=== PATIENT | male | born 1980 ===

== ENCOUNTER 2017-02-26 12:47 | Emergency (ER) | payer MEDICAID ==
[2017-02-26 12:56] VITALS: TEMP 97.6; BMI 28.2
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
[2017-02-26 13:31] VITALS: BP 118/78; PULSE 78; RESP 16
[2017-02-26 13:32] VITALS: O2SAT 100
== END 2017-02-26 13:30 | disposition home or self-care (01) ==
LOC: C.ER 12:47
DX: G89.29 Other chronic pain (principal); M54.2 Cervicalgia

== ENCOUNTER 2017-04-04 21:39 | Inpatient (IN) | payer MEDICAID ==
[2017-04-04 21:40] VITALS: BMI 28.2
[2017-04-04 22:26] LABS: BASO # 0.1 K/uL (0.0-0.2); BASO % 0.9 % (0.0-2.0); EOS # 0.1 K/uL (0.0-0.7); EOS % 1.1 % (0.0-4.0); HEMATOCRIT 38.5 % (35.0-51.0); LYMPH # 2.6 K/uL (1.0-4.3); LYMPH % 24.1 % (20.0-40.0); MEAN CORPUSCULAR HEMOGLOBIN 22.9 pg (27.0-31.0); MEAN CORPUSCULAR HGB CONC 31.7 g/dL (33.0-37.0); MEAN PLATELET VOLUME 8.8 fL (7.2-11.7); MONO # 0.7 K/uL (0.0-0.8); MONO % 6.9 % (0.0-10.0); RED CELL DISTRIBUTION WIDTH 16.8 % (11.5-14.5); WHITE BLOOD COUNT 10.6 K/uL (4.8-10.8)
[2017-04-04 22:29] LABS: MEAN CELL VOLUME 72.3 fL (80.0-94.0)
[2017-04-04 22:35] LABS: CHLORIDE 101 mmol/L (98-107); SODIUM 143 mmol/L (132-148)
[2017-04-04 22:36] LABS: POTASSIUM 3.6 mmol/L (3.6-5.2)
[2017-04-04 22:38] LABS: ALB/GLOB RATIO 1.1 (1.0-2.1); ALKALINE PHOSPHATASE 81 U/L (38-126); ALT/SGPT 26 U/L (21-72); AST/SGOT 17 U/L (17-59); BILIRUBIN,TOTAL 0.5 mg/dL (0.2-1.3); BLOOD UREA NITROGEN 18 mg/dL (9-20); CALCIUM 9.6 mg/dl (8.6-10.4); CARBON DIOXIDE 28 mmol/L (22-30); GFR AFRICAN-AMERICAN > 60; GLUCOSE,RANDOM 86 mg/dL (75-110); TOTAL PROTEIN 7.7 g/dL (6.3-8.3)
[2017-04-04 22:39] LABS: ALCOHOL SERUM < 10 mg/dl (0-10)
[2017-04-04 23:04] LABS: RBC URINE 1 /hpf (0-3); URINE BACTERIA RARE (<OCC); URINE BILIRUBIN NEGATIVE (NEGATIVE); URINE BLOOD NEGATIVE (NEGATIVE); URINE COLOR Yellow (YELLOW); URINE GLUCOSE (UA) NORMAL (Normal); URINE KETONE TRACE mg/dL (NEGATIVE); URINE PROTEIN 1+ mg/dL (NEGATIVE); WBC URINE 9 /hpf (0-5)
--- NOTE | 2017-04-04 23:07 | C.PDOC ---
History Of Present Illness 36 year old male presents to the ED seeking detox from heroin. Patient snorts heroin, and states his last use was yesterday (six bags). Patient denies current physical complaints, and has no suicidal or homicidal ideations. Time Seen by Provider: 04/04/17 22:07 Chief Complaint (Nursing): Substance Abuse History Per: Patient History/Exam Limitations: no limitations Onset/Duration Of Symptoms: Persistent Suicide/Self Injury Attempted (Context): None Modifying Factor(s): Narcotics (heroin) Associated Symptoms: denies: Suicidal Thoughts, Suicidal Plan Past Medical History Reviewed: Historical Data, Nursing Documentation, Vital Signs Vital Signs: Last Vital Signs Temp 98.4 F 04/10/17 06:00 Pulse 77 04/10/17 06:00 Resp 18 04/10/17 06:00 BP 109/64 04/10/17 06:00 Pulse Ox 98 04/10/17 12:09 - Medical History PMH: Anxiety, Back Problems, Gastritis Family History: States: No Known Family Hx - Social History Hx Tobacco Use: No Hx Alcohol Use: No Hx Substance Use: Yes - Immunization History Hx Tetanus Toxoid Vaccination: No Hx Influenza Vaccination: Yes Hx Pneumococcal Vaccination: No Review Of Systems Except As Marked, All Systems Reviewed And Found Negative. Constitutional: Negative for: Fever, Chills Cardiovascular: Negative for: Chest Pain, Palpitations Respiratory: Negative for: Cough, Shortness of Breath Gastrointestinal: Negative for: Nausea, Vomiting, Abdominal Pain, Diarrhea Neurological: Negative for: Headache Psych: Negative for: Suicidal ideation Physical Exam - Physical Exam Appears: Well, Non-toxic, No Acute Distress Skin: Warm, Dry Head: Normacephalic Eye(s): bilateral: Normal Inspection Oral Mucosa: Moist Cardiovascular: Rhythm Regular Respiratory: Normal Breath Sounds, No Rales, No Rhonchi, No Wheezing Gastrointestinal/Abdominal: Normal Exam, Bowel Sounds, Soft, No Tenderness Extremity: Normal ROM, No Tenderness Neurological/Psych: Oriented x3 Gait: Steady ED Course And Treatment - Laboratory Results Result Diagrams: 04/04/17 22:18 04/04/17 22:18 O2 Sat by Pulse Oximetry: 98 (room air ) Pulse Ox Interpretation: Normal Progress Note: Blood work, UA, UDS ordered and reviewed. 11:40pm- Patient medically cleared. 12:03am- Patient accepted for detox admission by Dr. Neumann. Disposition - Disposition Disposition: HOSPITALIZED Disposition Time: 00:03 Condition: STABLE - Clinical Impression Clinical Impression: Opiate dependence, Cannabis use disorder, mild, abuse - Scribe Statement The provider has reviewed the documentation as recorded by the Rachelibe Talya Thomas All medical record entries made by the Scribe were at my direction and personally dictated by me. I have reviewed the chart and agree that the record accurately reflects my personal performance of the history, physical exam, medical decision making, and the department course for this patient. I have also personally directed, reviewed, and agree with the discharge instructions and disposition. Decision To Admit - Pt Status Changed To: Hospital Disposition Of: Inpatient - Admit Certification Admit to Inpatient:: After my assessment, the patient will require hospitalization for at least two midnights. This is because of the severity of symptoms shown, intensity of services needed, and/or the medical risk in this patient being treated as an outpatient. - InPatient: Physician Admission Certification: I certify that this patient requires 2 or more midnights of care for the following reason:: see notes - . Bed Request Type: Detox Admitting Physician: Guero Neumann Patient Diagnosis: Opiate dependence, Cannabis use disorder, mild, abuse
[2017-04-04 23:09] LABS: URINE LEUKOCYTE ESTERASE 1+ Leu/uL (Negative)
[2017-04-05] MEDS ORDERED: Buprenorphine Hydrochloride 2 mg SL ONE ×2 (01:55→03:00)
--- NOTE | 2017-04-05 02:53 | PCM.BM ---
<Clotilde Antunez - Last Filed: 04/05/17 02:51> Treatment Plan Problems - Problems identified on initial assessmt Opiate Dep Date Initiated: 04/05/17 Time Initiated: 02:50 Assessment reference: NA (Opiate Dep) Treatment assets and liabiliti Patient Assests: cooperative, ADL independent, good support system, negotiates basic needs, financial stabiity Patient Liabilities: physical pain, substance abuse, medical problems - Milieu Protocol Maintain good personal hygiene: daily Encourage regular showers, daily Remind patient to perform daily oral care, daily Assist patient to perform ADL's Conduct patient checks and document Observation sheet: Q15 minutes Maintain personal safety: every shift Educate patient to report safety concerns to staff, every shift Monitor environment for contraband/sharps Medication safety: Monitor for expected outcome, potential side effects: every shift, Assess barriers to learning: every shift, Assess readiness for medication education: every shift <Guero Neumann - Last Filed: 04/05/17 15:41> - Diagnosis (1) Opiate dependence, continuous Status: Acute (2) Cannabis use disorder, moderate, dependence Status: Acute <Mary Kerr - Last Filed: 04/06/17 10:39> Family Contact Family involvement: Famliy/SO not involved Family contact: Patient agrees to contact - Goals for Treatment Patient goals for treatment: Transition from detox to short-term rehab. Discharge/Continuing Care - Education Needs Education Needs: Patient Medication, Patient Diagnosis/Disease Process, Patient Coping Skills, Patient Anger Management skills, Patient Placement options, Patient Community resources - Discharge Discharge Criteria: No longer exhibiting s/s of withdrawal, Reduction of target symptoms Discharge to:: Substance Abuse Rehab - Treatment Team Participation Patient/Family/SO Statement: 04/06/17 10:38 "I wanna go to [facility] if I [facility]". Discussed with Family/SO: No Was Patient/Family/SO present at Treatment Team Meeting: Yes
--- NOTE | 2017-04-05 15:48 | PCM.PSYCH ---
Initial Psychiatric Evaluation - Initial Psychiatric Evaluation Type of Admission: Voluntary Legal Status: Capacity Chief Complaint (in patient's own words): I need help for my substance use History of Present Illness and Precipitating Events: Patient is a 36 years old, single, employed, male, with history of opiate and cannabis use was admitted for the treatment of withdrawing from opiates. Patient reported he started opiate medications after surgery on his neck. Initially he was getting opiate pain medications from his provider which later stopped giving him medications. Patient reported after that he started using heroin, was using up to 1 bundle daily, sniffing. He started using heroin in August 2016. His last use of heroin was 2 days ago. Cannabis: He started using cannabis at the age of 18 years. According to patient he was using 4 g of cannabis daily which now is reduced to 2 blunts daily. His last use was 4 days ago. Patient also has history of cocaine use. His last use of cocaine was in 2009. Patient also smoke one pack of cigarettes daily and is requesting for nicotine patch. Patient has history of cervical spinal fusion surgery. Patient also reported that he was taking Xanax 0.5 mg 4 times a day, prescribed by his PCP. His last use of Xanax was 3-4 months ago. Patient reported he stopped taking Xanax and had a seizure at that time. He was born in [place], has 2 years of college. Currently he is working. Lives with his mother and sister. Never and has no children. His height is 5 feet 6 inches and weight is 175 pounds. Current Medications: Active Medications Generic Name Dose Route Start Last Admin Trade Name Freq PRN Reason Stop Dose Admin Clonidine HCl 0.1 mg 04/05/17 01:39 04/05/17 09:59 Catapres PO 0.1 mg Q8 PRN Administration COWS Score More or Equal to 5 Dicyclomine HCl 10 mg 04/05/17 01:39 04/05/17 10:00 Bentyl PO 10 mg Q6 PRN Administration Muscle spasm Gabapentin 300 mg 04/05/17 14:00 04/05/17 13:25 Neurontin PO 300 mg TID WANDY Administration Hydroxyzine HCl 25 mg 04/05/17 11:00 Atarax PO Q6 PRN Anxiety Loperamide HCl 2 mg 04/05/17 01:39 Imodium PO Q8 PRN Diarrhea Nicotine 1 patch 04/05/17 11:00 04/05/17 11:27 Nicoderm Cq TD 1 patch DAILY WANDY Administration Ondansetron HCl 4 mg 04/05/17 01:39 Zofran Tab PO Q8 PRN Nausea/Vomiting Pneumococcal Polyvalent Vaccine 0.5 ml 04/08/17 10:00 Pneumovax 23 Vaccine IM 04/08/17 10:01 .ONCE ONE Trazodone HCl 50 mg 04/05/17 01:47 Desyrel PO HS PRN Insomnia Past Psychiatric History - Past Psychiatric History Previous Treatment History: None History of Abuse: None reported History of ETOH/Drug Use: See HPI History of Family Illness: None reported Pertinent Medical Hx (Current Medical&Sleep Prob, Allergies): Allergies Allergy/AdvReac Type Severity Reaction Status Date / Time ketorolac tromethamine Allergy Intermediate SWELLING Verified 04/04/17 21:59 [From Toradol] acetaminophen Allergy Verified 04/04/17 21:59 [From Tylenol-Codeine #3] codeine Allergy Verified 04/04/17 21:59 [From Tylenol-Codeine #3] tramadol AdvReac NAUSEA Verified 04/04/17 21:59 No Known Home Med 04/04/17 Review of Systems - Psychiatric Psychiatric: Other Mental Status Examination - Personal Presentation Personal Presentation: Looks stated age - Affect Affect: Other (Appropriate) - Motor Activity Motor Activity: Calm - Reliability in Providing Information Reliability in Providing Information: Fair - Speech Speech: Organized - Mood Mood: Anxious - Formal Thought Process Formal Thought Process: No Impairment - Hallucinations/Delusions Hallucinations: Other (None reported) Delusions: Other - Obsessions/Compulsions Obsessions: None Compulsions: None - Cognitive Functions Orientation: Person, Place, Situation, Time Sensorium: Alert Attention/Concentration: Attentive Abstract Thinking: Center Estimate of Intelligence: Average Judgement: Intact, as evidence by: Insight regarding need for hospitalization Memory: Recent intact, as evidence by: 3/3 object recall, Remote intact, as evidenced by: Ability to recall historical events - Risk Risk: Withdrawal, Diminished functioning - Strength & Assets Inventory Strength & Assets Inventory: Family support, Employment history, Cooperative - Limitations Limitations: Other DSM 5 DX - DSM 5 DSM 5 Diagnosis: Opiate use disorder severe Cannabis use disorder moderate - Recommended/Plan of Treatment Treatment Recommendations and Plan of Treatment: Patient education Reported therapy We will start Subutex detox for opiate withdrawal symptoms Other when necessary medications Projected ELOS: 4-5 days - Smoking Cessation Smoking Cessation Initiated: Yes
[2017-04-05] MEDS: Pantoprazole 40 mg EC Tab PO SCH (16:31)
[2017-04-06] MEDS ORDERED: Buprenorphine Hydrochloride 2 mg SL ONE (09:15)
[2017-04-06] MEDS: Pantoprazole 40 mg EC Tab PO SCH (09:24)
--- NOTE | 2017-04-06 13:39 | PCM.PYCHPN ---
Psychiatric Progress Note - Psychiatric Progress Note Patient seen today, length of contact: 15 minutes Patient Chief Complaint: I'm feeling better Problems Identified/Issues Discussed: Patient seen. Chart reviewed. Case discussed with the staff. Issues related to illness and treatment were discussed with the patient. Reported compliant with treatment with no adverse affects. Tolerating treatment very well. Reported feeling better with mild withdrawal symptoms. At the time of evaluation, patient was awake alert oriented 3, had no delusions, no auditory or visual hallucinations, no suicidal ideations or homicidal ideations. Medical Problems: None reported Diagnostic Results: Reviewed DSM 5 Symptoms Update: Improving with treatment Medication Change: No Medical Record Reviewed: Yes Mental Status Examination - Cognitive Function Orientation: Person, Place, Situation, Time Memory: Intact Attention: WNL Concentration: WNL Association: WN Fund of Knowledge: [facility] Decription of patient's judgement and insights: Fair - Mood Mood: Anxious (Much less than before) - Affect Affect: Other (Appropriate) - Speech Speech: Appropriate - Formal Thought Process Formal Thought Process: No Impairment Psychotic Thoughts and Behaviors: None - Suicidal Ideation Suicidal Ideation: No - Homicidal Ideation Homicidal Ideation: No Goal/Treatment Plan - Goal/Treatment Plan Need for Continued Stay: Remain at risks for inpatient hospitalization, Discharge may exacerbated symptoms, Severe functional impairment Progress Toward Problem(s) and Goals/Treatment Plan: Patient education Reported therapy Continue treatment as before Wants to go to [facility] for follow-up care after discharge from the hospital Estimated Date of D/C: 04/09/17 - Smoking Cessation Smoking Cessation Initiated: Yes
[2017-04-06 20:10] VITALS: RESP 18
[2017-04-07] MEDS: Buprenorphine Hydrochloride 2 mg SL SCH (09:18)
[2017-04-07] MEDS: Pantoprazole 40 mg EC Tab PO SCH (09:18)
--- NOTE | 2017-04-07 17:25 | PCM.PYCHPN ---
Psychiatric Progress Note - Psychiatric Progress Note Patient seen today, length of contact: 15 minutes Patient Chief Complaint: I'm feeling better Problems Identified/Issues Discussed: Patient seen. Chart reviewed. Case discussed with the staff. Issues related to illness and treatment were discussed with the patient. Reported compliant with treatment with no adverse affects. Tolerating treatment very well. Reported feeling better with mild withdrawal symptoms. At the time of evaluation, patient was awake alert oriented 3, had no delusions, no auditory or visual hallucinations, no suicidal ideations or homicidal ideations. Medical Problems: None reported Diagnostic Results: Reviewed DSM 5 Symptoms Update: Improving with treatment Medication Change: No Medical Record Reviewed: Yes Mental Status Examination - Cognitive Function Orientation: Person, Place, Situation, Time Memory: Intact Attention: WNL Concentration: WNL Association: [facility] Fund of Knowledge: [facility] Decription of patient's judgement and insights: Fair - Mood Mood: Neutral - Affect Affect: Other (Appropriate) - Speech Speech: Appropriate - Formal Thought Process Formal Thought Process: No Impairment Psychotic Thoughts and Behaviors: None - Suicidal Ideation Suicidal Ideation: No - Homicidal Ideation Homicidal Ideation: No Goal/Treatment Plan - Goal/Treatment Plan Need for Continued Stay: Remain at risks for inpatient hospitalization, Discharge may exacerbated symptoms, Severe functional impairment Progress Toward Problem(s) and Goals/Treatment Plan: Patient education Reported therapy Continue treatment as before Wants to go to [facility] for follow-up care after discharge from the hospital Estimated Date of D/C: 04/08/17 - Smoking Cessation Smoking Cessation Initiated: Yes
[2017-04-08] MEDS: Buprenorphine Hydrochloride 2 mg SL SCH (09:37)
[2017-04-08] MEDS: Pantoprazole 40 mg EC Tab PO SCH (09:37)
[2017-04-08] MEDS ORDERED: Pneumococcal 23-Valent Vaccine IM ONE (10:00)
--- NOTE | 2017-04-08 17:53 | PCM.PYCHPN ---
Psychiatric Progress Note - Psychiatric Progress Note Patient seen today, length of contact: 15 minutes Patient Chief Complaint: I'm feeling better Problems Identified/Issues Discussed: Patient seen. Chart reviewed. Case discussed with the staff. Issues related to illness and treatment were discussed with the patient. Reported compliant with treatment with no adverse affects. Tolerating treatment very well. Reported feeling better. At the time of evaluation, patient was awake alert oriented 3, had no delusions, no auditory or visual hallucinations, no suicidal ideations or homicidal ideations. Medical Problems: None reported Diagnostic Results: Reviewed DSM 5 Symptoms Update: Improving with treatment Medication Change: No Medical Record Reviewed: Yes Mental Status Examination - Cognitive Function Orientation: Person, Place, Situation, Time Memory: Intact Attention: WNL Concentration: WNL Association: [facility] Fund of Knowledge: [facility] Decription of patient's judgement and insights: Fair - Mood Mood: Neutral - Affect Affect: Other (Appropriate) - Speech Speech: Appropriate - Formal Thought Process Formal Thought Process: No Impairment Psychotic Thoughts and Behaviors: None - Suicidal Ideation Suicidal Ideation: No - Homicidal Ideation Homicidal Ideation: No Goal/Treatment Plan - Goal/Treatment Plan Need for Continued Stay: Remain at risks for inpatient hospitalization, Discharge may exacerbated symptoms, Severe functional impairment Progress Toward Problem(s) and Goals/Treatment Plan: Patient education Reported therapy Continue treatment as before Wants to go to [facility] for follow-up care after discharge from the hospital Estimated Date of D/C: 04/08/17 - Smoking Cessation Smoking Cessation Initiated: Yes
[2017-04-09] MEDS: Pantoprazole 40 mg EC Tab PO SCH (09:09)
--- NOTE | 2017-04-09 15:29 | PCM.PYCHPN ---
Psychiatric Progress Note - Psychiatric Progress Note Patient seen today, length of contact: 15 minutes Patient Chief Complaint: I'm feeling better Problems Identified/Issues Discussed: Patient seen. Chart reviewed. Case discussed with the staff. Issues related to illness and treatment were discussed with the patient. Reported compliant with treatment with no adverse affects. Tolerating treatment very well. Reported feeling better. Still has some mild withdrawal symptoms. Will give an extra dose of Subutex 2 mg. At the time of evaluation, patient was awake alert oriented 3, had no delusions, no auditory or visual hallucinations, no suicidal ideations or homicidal ideations. Medical Problems: None reported Diagnostic Results: Reviewed DSM 5 Symptoms Update: Improving with treatment Medication Change: No Medical Record Reviewed: Yes Mental Status Examination - Cognitive Function Orientation: Person, Place, Situation, Time Memory: Intact Attention: WNL Concentration: WNL Association: WN Fund of Knowledge: [facility] Decription of patient's judgement and insights: Fair - Mood Mood: Neutral - Affect Affect: Other (Appropriate) - Speech Speech: Appropriate - Formal Thought Process Formal Thought Process: No Impairment Psychotic Thoughts and Behaviors: None - Suicidal Ideation Suicidal Ideation: No - Homicidal Ideation Homicidal Ideation: No Goal/Treatment Plan - Goal/Treatment Plan Need for Continued Stay: Remain at risks for inpatient hospitalization, Discharge may exacerbated symptoms, Severe functional impairment Progress Toward Problem(s) and Goals/Treatment Plan: Patient education Reported therapy Continue treatment as before Wants to go to [facility] for follow-up care after discharge from the hospital Estimated Date of D/C: 04/10/17 - Smoking Cessation Smoking Cessation Initiated: Yes
[2017-04-09] MEDS ORDERED: Buprenorphine Hydrochloride 2 mg SL ONE (19:00)
[2017-04-10] MEDS: Pantoprazole 40 mg EC Tab PO SCH (09:43)
--- NOTE | 2017-04-10 10:04 | PCM.PYCHDC ---
Mental Status Examination - Mental Status Examination Orientation: Person, Place, Situation, Time Memory: Intact Mood: Neutral Affect: Constricted Speech: Soft Attention: WNL Concentration: WNL Language: Word Retrieval Association: WNL Fund of Knowledge: WNL Formal Thought Process: No Impairment Description of patient's judgement and insight: good, fair Psychotic Thoughts and Behaviors: denies any AVH Suicidal Ideation: No Current Homicidal Ideation?: No Discharge Summary - Discharge Note Reason for Hospitalization: Patient is a 36 years old, single, employed, male, with history of opiate and cannabis use was admitted for the treatment of withdrawing from opiates. Patient reported he started opiate medications after surgery on his neck. Initially he was getting opiate pain medications from his provider which later stopped giving him medications. Patient reported after that he started using heroin, was using up to 1 bundle daily, sniffing. He started using heroin in August 2016. His last use of heroin was 2 days ago. Cannabis: He started using cannabis at the age of 18 years. According to patient he was using 4 g of cannabis daily which now is reduced to 2 blunts daily. His last use was 4 days ago. Patient also has history of cocaine use. His last use of cocaine was in 2009. Patient also smoke one pack of cigarettes daily and is requesting for nicotine patch. Patient has history of cervical spinal fusion surgery. Patient also reported that he was taking Xanax 0.5 mg 4 times a day, prescribed by his PCP. His last use of Xanax was 3-4 months ago. Patient reported he stopped taking Xanax and had a seizure at that time. He was born in [place], has 2 years of college. Currently he is working. Lives with his mother and sister. Never and has no children. His height is 5 feet 6 inches and weight is 175 pounds. Consultations:: List each consultation separately and include: 1. Reason for request. 2. Findings. 3. Follow-up Summary of Hospital Course include:: 1. Description of specific treatment plan utilized for patients during their course of treatmen. 2. Summarize the time- course for resolution of acute symptoms and/or regressed behaviors. 3. Describe issues identified and worked on during hospitalization. 4. Describe medication utilized. 5. Describe medical problems identified and treated. 6. Reassessment of suicide risk Summary of Hospital Course: During the course of his stay, patient (pt) started progressively improving and he no longer remained anxious and irritable. He tolerated the withdrawal protocol very well. He didnt have any shakes, sweating, tremors or cramps or any other withdrawal symptoms upon discharge. He started attending groups and meetings and started socializing. He denied any feelings of hopelessness, helplessness, and worthlessness, denied any problem with the sleep or appetite, denied suicidal ideation or homicidal ideation. Pt denied any auditory or visual hallucinations. Patient remained calm and cooperative and remained compliant with the medications. Patient tolerated the detox medications very well and denied any side effects. - Final Diagnosis (DSM 5) Condition upon Discharge: GOOD DSM 5: Opiate use disorder severe Opioid withdrawal Cannabis use disorder moderate Disposition: HOME/ ROUTINE Follow-up Treatment Plan: Education: Pt was educated and counseled about the risks and benefits of taking and not taking medications. Pt was educated and counseled about the risks of drinking and abusing drugs. Pt was educated and counseled to go to the ER or call 911 if pt develop suicidal ideation or homicidal ideation, worsening of symptoms or severe side effects of the meds. Prescriptions/Medication Reconciliation: Gabapentin [Neurontin] 300 mg PO BID #60 cap traZODone [Desyrel] 50 mg PO HS PRN #30 tab PRN Reason: Insomnia - Smoking Cessation Smoking Cessation Medication prescribed: No - Antipsychotic Medications Pt discharged on 2 or more routine antipsychotic medications: No
[2017-04-10 12:19] VITALS: BP 131/74; PULSE 82; TEMP 98.6; O2SAT 99
== END 2017-04-10 10:35 | disposition home or self-care (01) | DRG 745 ==
LOC: C.ER 21:39 → C.7D 04-05 00:03
PROC: HZ2ZZZZ Detoxification Services for Substance Abuse Treatment (ICD-10-PCS; principal; 2017-04-05)
DX: F11.23 Opioid dependence with withdrawal (principal); F12.20 Cannabis dependence, uncomplicated; F17.210 Nicotine dependence, cigarettes, uncomplicated; Z98.1 Arthrodesis status

== ENCOUNTER 2017-07-17 14:58 | Emergency (ER) | payer MEDICAID ==
[2017-07-17 14:58] VITALS: BMI 28.2
[2017-07-17 15:12] VITALS: RESP 20
--- NOTE | 2017-07-17 15:44 | C.PDOC ---
History Of Present Illness 37 year old male with Hx of anemia,colon cancer, and falls presents to the ED c/ o B/L leg weakness. Patient states he had surgery done for his colon cancer at [facility] on Jun 14, after he was d/c on Jun 21 he started feeling weakness on his legs. Patient reports falling few times before, but today he came in because while he was walking he felt his legs giving out and like he was going to fall. Patient denies fever, nausea, vomit, diarrhea, back pain, SOB, CP, numbness. Chief Complaint (Nursing): Medical Clearance History Per: Patient History/Exam Limitations: no limitations Onset/Duration Of Symptoms: Days Current Symptoms Are (Timing): Still Present Severity: None Reports Recently: Hospitalized ([facility] Jun 14 till Jun 21) Recent travel outside of the [place]: No Additional History Per: Patient Past Medical History Reviewed: Historical Data, Nursing Documentation, Vital Signs Vital Signs: Last Vital Signs Temp 97.6 F 07/17/17 16:33 Pulse 75 07/17/17 16:33 Resp 20 07/17/17 16:33 BP 105/64 07/17/17 16:33 Pulse Ox 97 07/17/17 16:33 - Medical History PMH: Anemia (transfusion x2), Anxiety, Back Problems, Colonic Polyps, Crohn's Disease, Depression, Gastritis, 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) Denies: Diabetes, Hepatitis, HIV, HTN, Chronic Kidney Disease, Sexually Transmitted Disease Other Surgeries: Colon Sx due to CA - [facility] DETOXIFICATION SERVICES FOR SUBSTANCE ABUSE TREATMENT (04/05/17) Family History: States: Unknown Family Hx - Social History Hx Tobacco Use: No Hx Alcohol Use: No Hx Substance Use: Yes - Immunization History Hx Tetanus Toxoid Vaccination: No Hx Influenza Vaccination: Yes Hx Pneumococcal Vaccination: No Review Of Systems Constitutional: Negative for: Fever, Chills Cardiovascular: Negative for: Chest Pain, Palpitations Respiratory: Negative for: Cough, Shortness of Breath Gastrointestinal: Negative for: Nausea, Vomiting, Abdominal Pain Skin: Negative for: Rash Neurological: Positive for: Weakness (B/L legs). Negative for: Numbness Physical Exam - Physical Exam Appears: Non-toxic, No Acute Distress Skin: Normal Color, Warm, Dry Head: Atraumatic, Normacephalic Oral Mucosa: Moist, No Drooling Throat: Normal, No Erythema, No Exudate Neck: Normal ROM, Supple Chest: Symmetrical Cardiovascular: Rhythm Regular, No Murmur Respiratory: Normal Breath Sounds, No Rales, No Rhonchi, No Wheezing Gastrointestinal/Abdominal: Soft, No Tenderness, No Mass, No Distention, No Guarding, No Rebound, Other (Surgical scar for CA surgery) Extremity: No Tenderness, No Pedal Edema, No Calf Tenderness, Capillary Refill ( less than 2 seconds), No Deformity, No Swelling, Other (B/L weakness to legs) Neurological/Psych: Oriented x3, Normal Speech, Normal Cognition, Normal Motor, Normal Sensation Gait: Steady ED Course And Treatment - Laboratory Results Result Diagrams: 07/17/17 15:56 07/17/17 15:56 O2 Sat by Pulse Oximetry: 99 (On RA) Pulse Ox Interpretation: Normal Progress Note: Plan: -Blood work ordered. Blood work results reviewed, pt has amild anemia otherwise unremarkable. Pt should follow up as on outpatient for futher check ups. Disposition - Disposition Disposition: HOME/ ROUTINE Disposition Time: 23:00 Condition: STABLE Forms: General Discharge Instructions, [facility] (Vietnamese) - Clinical Impression Clinical Impression: Muscle weakness of lower extremity - Scribe Statement The provider has reviewed the documentation as recorded by the Scribe Jim Lopes All medical record entries made by the Scribe were at my direction and personally dictated by me. I have reviewed the chart and agree that the record accurately reflects my personal performance of the history, physical exam, medical decision making, and the department course for this patient. I have also personally directed, reviewed, and agree with the discharge instructions and disposition.
[2017-07-17 16:00] LABS: BASO # 0.1 K/uL (0.0-0.2); BASO % 0.9 % (0.0-2.0); EOS # 0.2 K/uL (0.0-0.7); EOS % 2.4 % (0.0-4.0); HEMOGLOBIN 10.8 g/dL (12.0-18.0); LYMPH # 2.2 K/uL (1.0-4.3); LYMPH % 28.5 % (20.0-40.0); MEAN CELL VOLUME 72.1 fL (80.0-94.0); MEAN CORPUSCULAR HEMOGLOBIN 22.7 pg (27.0-31.0); MEAN CORPUSCULAR HGB CONC 31.5 g/dL (33.0-37.0); MEAN PLATELET VOLUME 8.6 fL (7.2-11.7); MONO # 0.5 K/uL (0.0-0.8); MONO % 6.4 % (0.0-10.0); NEUT # 4.9 K/uL (1.8-7.0); NEUT % 61.8 % (50.0-75.0); NRBC % 0.1 % (0.0-2.0); RBC 4.73 Mil/uL (4.40-5.90); RED CELL DISTRIBUTION WIDTH 23.9 % (11.5-14.5); WHITE BLOOD COUNT 7.9 K/uL (4.8-10.8)
[2017-07-17 16:21] LABS: ALB/GLOB RATIO 1.3 (1.0-2.1); ALBUMIN 3.8 g/dL (3.5-5.0); ALT/SGPT 32 U/L (21-72); AST/SGOT 20 U/L (17-59); BLOOD UREA NITROGEN 20 mg/dL (9-20); CALCIUM 8.4 mg/dl (8.6-10.4); GFR AFRICAN-AMERICAN > 60; GFR NON-AFRICAN AMERICAN > 60; MAGNESIUM 1.8 mg/dL (1.6-2.3)
[2017-07-17 16:34] VITALS: BP 105/64; PULSE 75; TEMP 97.6
[2017-08-25 11:28] VITALS: O2SAT 99
== END 2017-07-17 16:35 | disposition home or self-care (01) ==
LOC: C.ER 14:58
DX: M62.81 Muscle weakness (generalized) (principal)

== ENCOUNTER 2017-12-12 17:51 | Inpatient (IN) | payer MEDICAID ==
[2017-12-12 17:51] VITALS: BMI 28.2
--- NOTE | 2017-12-12 19:31 | C.PDOC ---
History Of Present Illness 37yo male, with history of cancer and currently on a pain management protocol, presents to ED stating he has relapsed and used 3 bags of heroin today. He denies any fever, chills, chest pain, shortness of breath. He has no medical complaints. Time Seen by Provider: 12/12/17 19:30 Chief Complaint (Nursing): Substance Abuse History Per: Patient History/Exam Limitations: no limitations Onset/Duration Of Symptoms: Days Current Symptoms Are (Timing): Still Present Suicide/Self Injury Attempted (Context): None Modifying Factor(s): Narcotics Severity: None Pain Scale Rating Of: 0 Associated Symptoms: denies: Anger Involuntary Hold By: None Recent travel outside of the [place]: No Additional History Per: Patient Past Medical History Reviewed: Historical Data, Nursing Documentation, Vital Signs Vital Signs: Last Vital Signs Temp 98.4 F 12/12/17 21:15 Pulse 72 12/12/17 21:15 Resp 20 12/12/17 21:15 BP 142/95 H 12/12/17 21:15 Pulse Ox 100 12/12/17 21:15 - Medical History PMH: Anemia (transfusion x2), Anxiety, Back Problems, Colonic Polyps, Crohn's Disease, Depression, Gastritis, Malignancy, 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) Denies: Diabetes, Hepatitis, HIV, HTN, Chronic Kidney Disease, Sexually Transmitted Disease - [facility] Procedures DETOXIFICATION SERVICES FOR SUBSTANCE ABUSE TREATMENT (04/05/17) Family History: States: Unknown Family Hx - Social History Hx Tobacco Use: No Hx Alcohol Use: No Hx Substance Use: Yes - Immunization History Hx Tetanus Toxoid Vaccination: No Hx Influenza Vaccination: Yes Hx Pneumococcal Vaccination: No Review Of Systems Constitutional: Negative for: Fever, Chills Eyes: Negative for: Redness ENT: Negative for: Throat Pain Cardiovascular: Negative for: Chest Pain Respiratory: Negative for: Shortness of Breath Gastrointestinal: Negative for: Nausea, Vomiting, Abdominal Pain Musculoskeletal: Negative for: Back Pain Skin: Negative for: Rash Neurological: Negative for: Weakness Psych: Positive for: Other (heroin use). Negative for: Anxiety Physical Exam - Physical Exam Appears: Non-toxic, No Acute Distress Skin: Warm, Dry Head: Atraumatic Eye(s): bilateral: PERRL Oral Mucosa: Moist Neck: Supple Chest: Symmetrical, Other (portacath on right chest) Cardiovascular: Rhythm Regular (tachycardia) Respiratory: No Rales, No Rhonchi, No Stridor, No Wheezing Gastrointestinal/Abdominal: Soft, No Tenderness Back: No CVA Tenderness, No Vertebral Tenderness Extremity: No Tenderness, No Deformity Extremity: Bilateral: Atraumatic Neurological/Psych: Oriented x3 Gait: Steady ED Course And Treatment - Laboratory Results Result Diagrams: 12/12/17 19:48 12/12/17 19:48 O2 Sat by Pulse Oximetry: 100 (RA) Pulse Ox Interpretation: Normal Progress Note: Labs and UDS ordered. Disposition Discussed With Dr.: Elmira Freire Comment: accepted the pt on her service and took over the care at 9:20 PM Doctor Will See Patient In The: Hospital Counseled Patient/Family Regarding: Studies Performed, Diagnosis - Disposition Disposition: HOSPITALIZED Disposition Time: 19:30 Condition: FAIR Forms: [facility] (Serbian) - POA Present On Arrival: None - Clinical Impression Clinical Impression: Drug abuse, Drug dependence - Scribe Statement The provider has reviewed the documentation as recorded by the Scribe (Lynsey Olmstead) Provider Attestation: Provider Attestation: All medical record entries made by the Scribe were at my direction and personally dictated by me. I have reviewed the chart and agree that the record accurately reflects my personal performance of the history, physical exam, medical decision making, and the department course for this patient. I have also personally directed, reviewed, and agree with the discharge instructions and disposition. Decision To Admit - Pt Status Changed To: Hospital Disposition Of: Inpatient - Admit Certification Admit to Inpatient:: After my assessment, the patient will require hospitalization for at least two midnights. This is because of the severity of symptoms shown, intensity of services needed, and/or the medical risk in this patient being treated as an outpatient. - InPatient: Physician Admission Certification: I certify that this patient requires 2 or more midnights of care for the following reason:: After my assessment, the patient will require hospitalization for at least two midnights. This is because of the severity of symptoms shown, intensity of services needed, and/or the medical risk in this patient being treated as an outpatient. - . Bed Request Type: Detox Admitting Physician: Elmira Freire Patient Diagnosis: Drug dependence
[2017-12-12 19:51] LABS: BASO # 0.1 K/uL (0.0-0.2); EOS # 0.1 K/uL (0.0-0.7); EOS % 1.8 % (0.0-4.0); LYMPH # 1.6 K/uL (1.0-4.3); MEAN CORPUSCULAR HEMOGLOBIN 28.8 pg (27.0-31.0); MEAN CORPUSCULAR HGB CONC 34.4 g/dL (33.0-37.0); MONO # 0.6 K/uL (0.0-0.8); MONO % 9.3 % (0.0-10.0); NEUT # 4.1 K/uL (1.8-7.0); NEUT % 62.9 % (50.0-75.0); RBC 4.83 Mil/uL (4.40-5.90); RED CELL DISTRIBUTION WIDTH 19.7 % (11.5-14.5); WHITE BLOOD COUNT 6.6 K/uL (4.8-10.8)
[2017-12-12 19:58] LABS: HEMOGLOBIN 13.9 g/dL (12.0-18.0); MEAN CELL VOLUME 83.5 fL (80.0-94.0)
[2017-12-12 20:04] LABS: ALB/GLOB RATIO 1.1 (1.0-2.1); ALT/SGPT 43 U/L (21-72); AST/SGOT 39 U/L (17-59); BLOOD UREA NITROGEN 13 mg/dL (9-20); CALCIUM 9.4 mg/dl (8.6-10.4); GFR AFRICAN-AMERICAN > 60; GFR NON-AFRICAN AMERICAN > 60
[2017-12-12 20:14] LABS: SQUAMOUS EPITHIAL < 1 /hpf (0-5); URINE BACTERIA OCC (<OCC); URINE BILIRUBIN NEGATIVE (NEGATIVE); URINE BLOOD NEGATIVE (NEGATIVE); URINE CLARITY Clear (Clear); URINE COLOR Straw (YELLOW); URINE GLUCOSE (UA) NORMAL (Normal); URINE LEUKOCYTE ESTERASE TRACE Leu/uL (Negative); URINE PROTEIN NEGATIVE (NEGATIVE); URINE UROBILINOGEN NORMAL mg/dL (0.2-1.0)
[2017-12-12 20:24] LABS: BARBITURATES, UR NEGATIVE (NEGATIVE); BENZODIAZEPINES, UR NEGATIVE (NEGATIVE); PHENCYCLIDINE, UR NEGATIVE (NEGATIVE)
[2017-12-12 20:25] LABS: OPIATES, UR POSITIVE (NEGATIVE)
[2017-12-12] MEDS ORDERED: Buprenorphine Hydrochloride 2 mg SL ONE (23:55)
[2017-12-13] MEDS ORDERED: Buprenorphine Hydrochloride 8 mg SL ONE (01:00)
[2017-12-13] MEDS ORDERED: Buprenorphine Hydrochloride 2 mg SL ONE ×2 (06:29→07:30)
[2017-12-13] MEDS ORDERED: Aluminum Hydroxide/Magnesium Hydroxide Susp (30 mL) PO PRN (10:04)
[2017-12-13] MEDS: Pantoprazole 40 mg EC Tab PO SCH (10:57)
--- NOTE | 2017-12-13 12:34 | PCM.PSYCH ---
Initial Psychiatric Evaluation - Initial Psychiatric Evaluation Type of Admission: Voluntary Legal Status: Capacity Chief Complaint (in patient's own words): "I need to stop all opiates" History of Present Illness and Precipitating Events: The pt is seen, chart reviewed and case discussed Pt is a 37yo male presenting to ER requesting admission to detox. Pt reports using 20 bags of heroin daily, intranasal, beginning in August 2016, last use today 12/12/17. Pt says he smokes two blunts of marijuana daily, last use today , beginning at age 16. Pt says he smokes half a pack of cigarettes per day. Pt says he use to freebase $200 worth of cocaine everyday but quit in 2013. Pt says he has had two withdrawal related seizures approximately 1.5-2 years ago. Pt reports a detox stay here at [facility] in March 2017. Pt reports intermittent involvement with NA for 6 or 7 months in 2010. Pt reports a three month sobriety period following his discharge from [facility] detox unit. Pt reports a stage 3 colon cancer diagnosis triggered his relapse in May 2017. He says he uses perla up to 30 bags sometimes especially when he cannot get painkillers but he wants to be opiate free. Cannabis: He started using cannabis at the age of 18 years. According to patient he was using 4 g of cannabis daily which now is reduced to 2 blunts daily. His last use was 4 days ago. Patient also has history of cocaine use. His last use of cocaine was in 2009. Patient also smoke one pack of cigarettes daily and is requesting for nicotine patch. Pt reports in addition to colon cancer, he is anemic, has acid reflux, and hypertension. Pt reports his current medication as Xanax 0.5mg 2x/day, oxycodone 5mg every six hours, fentanyl (duragesic patch) 25mcg 1x/3days, Prilosec 40mg 1x/day, and folfox chemo. Pt says he currently receives chemo treatment 2x/week at [facility] and estimates he has 6 or 7 sessions left. Pt says since his cancer diagnosis he has been very depressed. Pt denies S/I and H/I. No pio or psychosis. Pt reports anxiety attacks which began a while ago, as evidenced by palpitations, hot flashes, and nervousness. Pt reports the frequency of his anxiety attacks as daily and the duration as hours. Pt has been employed at the [employer] for five years but is currently on a leave of absence due to medical reasons. He was born in [place], has 2 years of college. Never and has no children. Current Medications: Active Medications Generic Name Dose Route Start Last Admin Trade Name Freq PRN Reason Stop Dose Admin Al Hydrox/Mg Hydrox/Simethicone 30 ml 12/13/17 10:04 Maalox 30 Ml PO TID PRN Indigestion / Heartburn Buprenorphine HCl 6 mg 12/14/17 10:00 Subutex SL 12/17/17 09:59 .TAPER WANDY Taper Clonidine HCl 0.1 mg 12/13/17 10:04 12/13/17 10:17 Catapres PO 0.1 mg Q8 PRN Administration COWS Score More or Equal to 5 Loperamide HCl 2 mg 12/13/17 10:04 Imodium PO Q8 PRN Diarrhea Nicotine 1 patch 12/13/17 11:15 12/13/17 12:26 Nicoderm Cq TD 1 patch DAILY WANDY Administration Ondansetron HCl 4 mg 12/13/17 10:04 Zofran Tab PO Q8 PRN Nausea/Vomiting Pantoprazole Sodium 40 mg 12/13/17 10:15 12/13/17 10:57 Protonix Ec Tab PO 40 mg DAILY WANDY Administration Past Psychiatric History - Past Psychiatric History Previous Treatment History: None Pertinent Medical Hx (Current Medical&Sleep Prob, Allergies): Allergies Allergy/AdvReac Type Severity Reaction Status Date / Time ketorolac tromethamine Allergy Intermediate SWELLING Verified 12/12/17 18:08 [From Toradol] acetaminophen Allergy Verified 12/12/17 18:08 [From Tylenol-Codeine #3] codeine Allergy Verified 12/12/17 18:08 [From Tylenol-Codeine #3] tramadol AdvReac NAUSEA Verified 12/12/17 18:08 Famotidine 20 mg PO DAILY 07/17/17 oxyCODONE/Acetaminophen [Percocet 5/325 mg Tab] 1 tab PO Q6H 07/17/17 Alprazolam [Xanax] 0.5 mg PO BID 12/12/17 fentaNYL 25 mcg/hr [Duragesic Patch 25 mcg/hr] 12/12/17 Review of Systems - Psychiatric Psychiatric: Abnormal Sleep Pattern, Anhedonia, Anxiety, Depression. absent: Homicidal Ideation, Paranoia, Suicidal Ideation Mental Status Examination - Personal Presentation Personal Presentation: Looks stated age - Affect Affect: Constricted - Motor Activity Motor Activity: Calm - Reliability in Providing Information Reliability in Providing Information: Good - Speech Speech: Organized - Mood Mood: Depressed, Anxious - Formal Thought Process Formal Thought Process: No Impairment - Cognitive Functions Orientation: Person, Place, Situation, Time Sensorium: Alert Attention/Concentration: Attentive Estimate of Intelligence: Average Judgement: Intact, as evidence by: Insight regarding need for hospitalization Memory: Recent intact, as evidence by: Ability to recall events of the day, Remote intact, as evidenced by: Abilit to recall sig. life events - Risk Risk: Withdrawal, Diminished functioning - Strength & Assets Inventory Strength & Assets Inventory: Cooperative - Limitations Limitations: Living alone, Other DSM 5 DX - DSM 5 DSM 5 Diagnosis: Opioid withdrawal Opioid use d/o- severe Depressive d/o - unspecified MERRITT Cannabis use d/o - severe Tobacco use d/o - severe - Recommended/Plan of Treatment Treatment Recommendations and Plan of Treatment: Taper with Subutex, extra doses if needed OK, but he also wants to leave by Maria Ines when he has an appt for chemo Gabapentin for augmentation if needed As needed medications All risks, benefits and alternatives of the meds discussed, and the pt agreed and understood. Attend groups and activities Supportive therapy and psychoeducation [place] for abstinence CBT for relapse prevention Encourage MAT Refer to rehab or IOP, and self-help groups Smoking cessation with [place] Nicotine patch if needed 34 min Projected ELOS: 4-5 days Prognosis: good to fair - Smoking Cessation Smoking Cessation Initiated: Yes
--- NOTE | 2017-12-13 12:56 | PCM.BM ---
<Navid Marshall - Last Filed: 12/13/17 12:55> Treatment assets and liabiliti Patient Assests: cooperative, ADL independent, good support system, negotiates basic needs, financial stabiity Patient Liabilities: substance abuse, medical problems <Erasto Agudelo - Last Filed: 12/14/17 12:42> - Diagnosis (1) Opiate dependence, continuous Status: Acute Interventions: 12/14/17 12:42 * Assess 7x/week regarding severity of withdrawal * Educate regarding risks, benefits, side effects and alternatives of medications * Use Motivational Interviewing for abstinence * Use CBT for relapse prevention * Medication management for withdrawal symptoms * Encourage medication assisted treatment * <Mary Kerr - Last Filed: 12/15/17 11:55> Family Contact Family involvement: Robert/SO not involved - Goals for Treatment Patient goals for treatment: Complete detox and transition to IOP. Discharge/Continuing Care - Education Needs Education Needs: Patient Medication, Patient Diagnosis/Disease Process, Patient Coping Skills, Patient Anger Management skills, Patient Placement options, Patient Community resources - Discharge Discharge Criteria: No longer exhibiting s/s of withdrawal, Reduction of target symptoms Discharge to:: Home, With Family - Treatment Team Participation Patient/Family/SO Statement: 12/15/17 11:54 "I wanna go to IOP after this at [facility]." Discussed with Family/SO: No Was Patient/Family/SO present at Treatment Team Meeting: Yes
[2017-12-14] MEDS: Pantoprazole 40 mg EC Tab PO SCH (09:35)
[2017-12-14] MEDS: Buprenorphine Hydrochloride 2 mg SL SCH (09:36)
--- NOTE | 2017-12-14 12:42 | PCM.PYCHPN ---
Psychiatric Progress Note - Psychiatric Progress Note Patient seen today, length of contact: 17 min Patient Chief Complaint: "I can't sleep well" Problems Identified/Issues Discussed: The pt is seen, chart reviewed, case discussed with staff. Support given, CBT and [place] used briefly No new symptoms reported, improving slowly and needs more time No SEs from medications, risks discussed. After care discussed He asked for Tylenol but heis allergic to it Motrin is recommended Ambien for sleep bc he takes xanax to sleep - risks discussed Medication Change: Yes (detox changes daily) Medical Record Reviewed: Yes Mental Status Examination - Cognitive Function Orientation: Person, Place, Situation, Time Memory: Intact Attention: WNL Concentration: WNL Association: WNL Fund of Knowledge: WNL - Mood Mood: Depressed, Anxious - Affect Affect: Constricted - Speech Speech: Appropriate - Formal Thought Process Formal Thought Process: No Impairment - Suicidal Ideation Suicidal Ideation: No - Homicidal Ideation Homicidal Ideation: No Goal/Treatment Plan - Goal/Treatment Plan Need for Continued Stay: Discharge may exacerbated symptoms, Severe functional impairment Progress Toward Problem(s) and Goals/Treatment Plan: Taper with Subutex, extra doses if needed OK, but he also wants to leave by Maria Ines when he has an appt for chemo Gabapentin for augmentation if needed As needed medications All risks, benefits and alternatives of the meds discussed, and the pt agreed and understood. Attend groups and activities Supportive therapy and psychoeducation [place] for abstinence CBT for relapse prevention Encourage MAT Refer to rehab or IOP, and self-help groups Smoking cessation with [place] Nicotine patch if needed 34 min
[2017-12-15] MEDS: Pantoprazole 40 mg EC Tab PO SCH (09:29)
[2017-12-15] MEDS: Buprenorphine Hydrochloride 2 mg SL SCH (09:30)
--- NOTE | 2017-12-15 13:21 | PCM.PYCHPN ---
Psychiatric Progress Note - Psychiatric Progress Note Patient seen today, length of contact: 15 min Patient Chief Complaint: "I'm alright" Problems Identified/Issues Discussed: The pt is seen, chart reviewed, case discussed with staff. The pt is compliant with medications and reports no side-effects. Symptoms are improving but needs more time to stabilize. After care discussed, support and psychoeducation given. Pt said he slept "so-so", stated the medications did not help He had no other complaints Medication Change: Yes (detox changes daily) Medical Record Reviewed: Yes Mental Status Examination - Cognitive Function Orientation: Person, Place, Situation, Time Memory: Intact Attention: WNL Concentration: WNL Association: WNL Fund of Knowledge: WNL - Mood Mood: Depressed, Anxious - Affect Affect: Constricted - Speech Speech: Appropriate - Formal Thought Process Formal Thought Process: No Impairment - Suicidal Ideation Suicidal Ideation: No - Homicidal Ideation Homicidal Ideation: No Goal/Treatment Plan - Goal/Treatment Plan Need for Continued Stay: Discharge may exacerbated symptoms, Severe functional impairment Progress Toward Problem(s) and Goals/Treatment Plan: Taper with Subutex, extra doses if needed OK, but he also wants to leave by Maria Ines when he has an appt for chemo Gabapentin for augmentation if needed As needed medications All risks, benefits and alternatives of the meds discussed, and the pt agreed and understood. Attend groups and activities Supportive therapy and psychoeducation [place] for abstinence CBT for relapse prevention Encourage MAT Refer to rehab or IOP, and self-help groups Smoking cessation with [place] Nicotine patch if needed
--- NOTE | 2017-12-16 08:45 | PCM.PYCHDC ---
Mental Status Examination - Mental Status Examination Orientation: Person, Place, Situation, Time Discharge Summary - Discharge Note Consultations:: List each consultation separately and include: 1. Reason for request. 2. Findings. 3. Follow-up Summary of Hospital Course include:: 1. Description of specific treatment plan utilized for patients during their course of treatmen. 2. Summarize the time- course for resolution of acute symptoms and/or regressed behaviors. 3. Describe issues identified and worked on during hospitalization. 4. Describe medication utilized. 5. Describe medical problems identified and treated. 6. Reassessment of suicide risk Summary of Hospital Course: The pt is seen, chart reviewed and case discussed Pt is a 37yo male presenting to ER requesting admission to detox. Pt reports using 20 bags of heroin daily, intranasal, beginning in August 2016, last use today 12/12/17. Pt says he smokes two blunts of marijuana daily, last use today , beginning at age 16. Pt says he smokes half a pack of cigarettes per day. Pt says he use to freebase $200 worth of cocaine everyday but quit in 2013. Pt says he has had two withdrawal related seizures approximately 1.5-2 years ago. Pt reports a detox stay here at [facility] in March 2017. Pt reports intermittent involvement with NA for 6 or 7 months in 2010. Pt reports a three month sobriety period following his discharge from [facility] detox unit. Pt reports a stage 3 colon cancer diagnosis triggered his relapse in May 2017. He says he uses perla up to 30 bags sometimes especially when he cannot get painkillers but he wants to be opiate free. Cannabis: He started using cannabis at the age of 18 years. According to patient he was using 4 g of cannabis daily which now is reduced to 2 blunts daily. His last use was 4 days ago. Patient also has history of cocaine use. His last use of cocaine was in 2009. Patient also smoke one pack of cigarettes daily and is requesting for nicotine patch. Pt reports in addition to colon cancer, he is anemic, has acid reflux, and hypertension. Pt reports his current medication as Xanax 0.5mg 2x/day, oxycodone 5mg every six hours, fentanyl (duragesic patch) 25mcg 1x/3days, Prilosec 40mg 1x/day, and folfox chemo. Pt says he currently receives chemo treatment 2x/week at [facility] and estimates he has 6 or 7 sessions left. Pt says since his cancer diagnosis he has been very depressed. Pt denies S/I and H/I. No pio or psychosis. Pt reports anxiety attacks which began a while ago, as evidenced by palpitations, hot flashes, and nervousness. Pt reports the frequency of his anxiety attacks as daily and the duration as hours. Pt has been employed at the [employer] for five years but is currently on a leave of absence due to medical reasons. He was born in [place], has 2 years of college. Never and has no children. He will go to [facility] IOP. - Diagnosis (1) Opiate dependence, continuous Current Visit: No Status: Acute - Final Diagnosis (DSM 5) Condition upon Discharge: FAIR Disposition: HOME/ ROUTINE Follow-up Treatment Plan: Taper with Subutex, extra doses if needed OK, but he also wants to leave by Maria Ines when he has an appt for chemo Gabapentin for augmentation if needed As needed medications All risks, benefits and alternatives of the meds discussed, and the pt agreed and understood. Attend groups and activities Supportive therapy and psychoeducation [place] for abstinence CBT for relapse prevention Encourage MAT Refer to rehab or IOP, and self-help groups Smoking cessation with [place] Nicotine patch if needed Prescriptions/Medication Reconciliation: Mirtazapine [Remeron] 30 mg PO HS #30 tab Pantoprazole [Protonix EC Tab] 40 mg PO DAILY #30 ect
[2017-12-16 09:05] VITALS: BP 134/83; PULSE 71; RESP 20; TEMP 98.3; O2SAT 98
[2017-12-16] MEDS: Buprenorphine Hydrochloride 2 mg SL SCH (09:20)
[2017-12-16] MEDS: Pantoprazole 40 mg EC Tab PO SCH (09:20)
== END 2017-12-16 10:00 | disposition home or self-care (01) | DRG 745 ==
LOC: C.ER 17:51 → C.7D 21:36
PROVIDERS: ADMIT Psychiatry & Neurology Psychiatry; ATTEND Psychiatry & Neurology Psychiatry
PROC: HZ2ZZZZ Detoxification Services for Substance Abuse Treatment (ICD-10-PCS; principal; 2017-12-12)
DX: F11.23 Opioid dependence with withdrawal (principal); F12.90 Cannabis use, unspecified, uncomplicated; F17.210 Nicotine dependence, cigarettes, uncomplicated; I10 Essential (primary) hypertension; K21.9 Gastro-esophageal reflux disease without esophagitis; D64.9 Anemia, unspecified; F32.9 Major depressive disorder, single episode, unspecified

== ENCOUNTER 2018-04-15 00:04 | Inpatient (IN) | payer MEDICAID ==
[2018-04-15 00:04] VITALS: BMI 28.2
[2018-04-15 01:20] LABS: BASO # 0.1 K/uL (0.0-0.2); EOS # 0.2 K/uL (0.0-0.7); EOS % 2.5 % (0.0-4.0); HEMOGLOBIN 13.2 g/dL (12.0-18.0); LYMPH # 1.9 K/uL (1.0-4.3); LYMPH % 30.2 % (20.0-40.0); MEAN CELL VOLUME 83.3 fL (80.0-94.0); MEAN CORPUSCULAR HEMOGLOBIN 28.1 pg (27.0-31.0); MEAN CORPUSCULAR HGB CONC 33.8 g/dL (33.0-37.0); MEAN PLATELET VOLUME 8.1 fL (7.2-11.7); MONO # 0.5 K/uL (0.0-0.8); MONO % 7.7 % (0.0-10.0); NEUT # 3.7 K/uL (1.8-7.0); NEUT % 58.6 % (50.0-75.0); RBC 4.69 Mil/uL (4.40-5.90); RED CELL DISTRIBUTION WIDTH 17.2 % (11.5-14.5); WHITE BLOOD COUNT 6.3 K/uL (4.8-10.8)
[2018-04-15 01:26] LABS: SQUAMOUS EPITHIAL < 1 /hpf (0-5); URINE BILIRUBIN NEGATIVE (NEGATIVE); URINE BLOOD NEGATIVE (NEGATIVE); URINE CLARITY Clear (Clear); URINE COLOR Amber (YELLOW); URINE GLUCOSE (UA) NORMAL (Normal); URINE LEUKOCYTE ESTERASE NEG Leu/uL (Negative); URINE PROTEIN 1+ mg/dL (NEGATIVE)
--- NOTE | 2018-04-15 01:27 | C.PDOC ---
History Of Present Illness 37-year-old male presents to the ED requesting heroin detox. Patient reports using 15-30 bags per day and notes he last used today. He denies suicidal/ homicidal ideation and has no other complaints at this time. Patient denies any other drug use. Time Seen by Provider: 04/15/18 00:27 Chief Complaint (Nursing): Substance Abuse History Per: Patient History/Exam Limitations: no limitations Onset/Duration Of Symptoms: Hrs Current Symptoms Are (Timing): Still Present Suicide/Self Injury Attempted (Context): None Modifying Factor(s): Narcotics (heroin ) Associated Symptoms: denies: Suicidal Thoughts, Suicidal Plan Involuntary Hold By: None Recent travel outside of the [place]: No Additional History Per: Patient Past Medical History Reviewed: Historical Data, Nursing Documentation, Vital Signs Vital Signs: Last Vital Signs Temp 98.2 F 04/15/18 03:22 Pulse 64 04/15/18 03:22 Resp 16 04/15/18 03:22 BP 138/80 04/15/18 03:22 Pulse Ox 100 04/15/18 03:39 - Medical History PMH: Anemia (transfusion x2), Anxiety, Back Problems, Colonic Polyps, Crohn's Disease, Depression, Gastritis, Malignancy, 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) Denies: Diabetes, Hepatitis, HIV, HTN, Chronic Kidney Disease, Sexually Transmitted Disease Surgical History: No Surg Hx - [facility] Procedures DETOXIFICATION SERVICES FOR SUBSTANCE ABUSE TREATMENT (12/12/17) Family History: States: Unknown Family Hx - Social History Hx Tobacco Use: No Hx Alcohol Use: No Hx Substance Use: Yes - Immunization History Hx Tetanus Toxoid Vaccination: No Hx Influenza Vaccination: Yes Hx Pneumococcal Vaccination: No Review Of Systems Psych: Positive for: Other (heroin detox ). Negative for: Suicidal ideation Physical Exam - Physical Exam Appears: Non-toxic, No Acute Distress Skin: Normal Color, Warm, Dry Head: Atraumatic, Normacephalic Eye(s): bilateral: Normal Inspection Oral Mucosa: Moist Neck: Supple Chest: Symmetrical, No Deformity, No Tenderness Cardiovascular: Rhythm Regular Respiratory: Normal Breath Sounds, No Accessory Muscle Use Extremity: Normal ROM, Capillary Refill (less than 2 seconds ) Neurological/Psych: Oriented x3, Normal Speech, Normal Cognition ED Course And Treatment - Laboratory Results Result Diagrams: 04/15/18 01:09 04/15/18 01:09 O2 Sat by Pulse Oximetry: 100 (on RA) Pulse Ox Interpretation: Normal Medical Decision Making Medical Decision Making: Impression: 37y/o male requesting heroin detox Progress: Bloodwork and urinalysis ordered and reviewed. Patient has been medically cleared. Disposition - Disposition Disposition: HOSPITALIZED Disposition Time: 01:40 Condition: STABLE - Clinical Impression Clinical Impression: Drug dependence, Opiate dependence - Scribe Statement The provider has reviewed the documentation as recorded by the Scribe (Lacy Lopez) Provider Attestation: All medical record entries made by the Scribe were at my direction and personally dictated by me. I have reviewed the chart and agree that the record accurately reflects my personal performance of the history, physical exam, medical decision making, and the department course for this patient. I have also personally directed, reviewed, and agree with the discharge instructions and disposition.
[2018-04-15 01:28] LABS: ALB/GLOB RATIO 1.3 (1.0-2.1); ALBUMIN 4.1 g/dL (3.5-5.0); ALT/SGPT 25 U/L (21-72); AST/SGOT 15 U/L (17-59); BLOOD UREA NITROGEN 16 mg/dL (9-20); CALCIUM 9.1 mg/dl (8.6-10.4); GFR NON-AFRICAN AMERICAN > 60
--- NOTE | 2018-04-15 01:28 | C.PDOC ---
Time Seen by Provider: 04/15/18 00:27 Chief Complaint (Nursing): Substance Abuse Past Medical History Vital Signs: Last Vital Signs Temp 97.6 F 04/15/18 00:21 Pulse 73 04/15/18 00:21 Resp 18 04/15/18 00:21 BP 137/84 04/15/18 00:21 Pulse Ox 100 04/15/18 00:21 - Medical History PMH: Anemia (transfusion x2), Anxiety, Back Problems, Colonic Polyps, Crohn's Disease, Depression, Gastritis, Malignancy, 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) Denies: Diabetes, Hepatitis, HIV, HTN, Chronic Kidney Disease, Sexually Transmitted Disease - [facility] Procedures DETOXIFICATION SERVICES FOR SUBSTANCE ABUSE TREATMENT (12/12/17) Family History: States: Unknown Family Hx - Social History Hx Tobacco Use: No Hx Alcohol Use: No Hx Substance Use: Yes - Immunization History Hx Tetanus Toxoid Vaccination: No Hx Influenza Vaccination: Yes Hx Pneumococcal Vaccination: No ED Course And Treatment O2 Sat by Pulse Oximetry: 100 Disposition - Disposition
[2018-04-15 01:38] LABS: BARBITURATES, UR NEGATIVE (NEGATIVE); BENZODIAZEPINES, UR NEGATIVE (NEGATIVE); PHENCYCLIDINE, UR NEGATIVE (NEGATIVE)
[2018-04-15 02:07] LABS: OPIATES, UR POSITIVE (NEGATIVE)
--- NOTE | 2018-04-15 03:35 | PCM.BM ---
<Debora Tom - Last Filed: 04/15/18 03:32> Treatment Plan Problems - Problems identified on initial assessmt Problem 1 Date Initiated: 04/15/18 Time Initiated: 03:33 Assessment reference: NA Status: Active Comment: heroin abuse Treatment assets and liabiliti Patient Assests: cooperative, ADL independent, good support system, negotiates basic needs, financial stabiity Patient Liabilities: poor support system, substance abuse, medical problems - Milieu Protocol Maintain good personal hygiene: daily Encourage regular showers, daily Remind patient to perform daily oral care Conduct patient checks and document Observation sheet: Q15 minutes Maintain personal safety: every shift Educate patient to report safety concerns to staff, every shift Monitor environment for contraband/sharps Medication safety: Monitor for expected outcome, potential side effects: every shift, Assess barriers to learning: every shift, Assess readiness for medication education: every shift <Erasto Agudelo - Last Filed: 04/15/18 10:06> - Diagnosis (1) Opiate dependence, continuous Status: Acute Interventions: 04/15/18 10:06 * Assess 7x/week regarding severity of withdrawal * Educate regarding risks, benefits, side effects and alternatives of medications * Use Motivational Interviewing for abstinence * Use CBT for relapse prevention * Medication management for withdrawal symptoms * Encourage medication assisted treatment * <Mary Kerr - Last Filed: 04/15/18 13:49> Family Contact Family involvement: Famliy/SO not involved - Goals for Treatment Patient goals for treatment: Complete detox and transition to IOP at [facility]. Discharge/Continuing Care - Education Needs Education Needs: Patient Medication, Patient Diagnosis/Disease Process, Patient Coping Skills, Patient Anger Management skills, Patient Placement options, Patient Community resources - Discharge Discharge Criteria: No longer exhibiting s/s of withdrawal, Reduction of target symptoms Discharge to:: Home - Treatment Team Participation Patient/Family/SO Statement: 04/15/18 13:48 "I'll try an IOP-- not inpatient..." Discussed with Family/SO: No Was Patient/Family/SO present at Treatment Team Meeting: Yes
--- NOTE | 2018-04-15 10:06 | PCM.PSYCH ---
Initial Psychiatric Evaluation - Initial Psychiatric Evaluation Type of Admission: Voluntary Legal Status: Capacity Chief Complaint (in patient's own words): "Heroin" History of Present Illness and Precipitating Events: The pt is a 37 year old single male, who has 1 child, and lives in an apartment with his family. He is currently unemployed. Pt presenting for opioid detoxification. The last time he used it was yesterday. He uses about 10-20 bags/day intranasally. This is his 3rd time presenting for detoxification. His last detoxification was 3 months ago. He maintained sobriety for 20 days. He relapsed because of depression and cravings. Longest sobriety period was for 4 months after his detoxification in March 2017. Pt smokes cigarettes half a pack/day, occasionally uses marijuana, sometimes cocaine but denies using any other drugs. His urine is positive for amph. but he denies using them and it's likely mixed in his heroin. Psych Hx: Feels very depressed and anxious. He denies SI, auditory or visual hallucinations. Pt states that he has "flashbacks" frequently but denies any traumatic history. Family Psych Hx: Unremarkable Legal Hx: Incarcerated on January 2017 for possession of heroin. Medical Hx: Chronic back pain secondary to herniated disk, which was diagnosed in 2007. He was prescribed roxys (30 mg), for which he took until September 2016 , when he was switched to Norcos, but was noncompliant and used heroin instead. Pt also had anemia, which he underwent blood transfusion, colon cancer ( diagnosed on May 2017 and treated), and Crohn's disease. Current Medications: Active Medications Generic Name Dose Route Start Last Admin Trade Name Freq PRN Reason Stop Dose Admin Acetaminophen 650 mg 04/15/18 02:25 Tylenol 325mg Tab PO Q6 PRN Pain, moderate (4-7) Clonidine HCl 0.1 mg 04/15/18 02:21 Catapres PO Q8H PRN Withdrawal Symptoms Dicyclomine HCl 10 mg 04/15/18 02:37 Bentyl PO Q6H PRN Muscle spasm Hydroxyzine HCl 25 mg 04/15/18 02:22 Atarax PO Q6H PRN Anxiety Ondansetron HCl 4 mg 04/15/18 02:22 Zofran Odt PO Q8H PRN Nausea/Vomiting Trazodone HCl 50 mg 04/15/18 02:21 Desyrel PO HS PRN Insomnia Past Psychiatric History - Past Psychiatric History Previous Treatment History: None Pertinent Medical Hx (Current Medical&Sleep Prob, Allergies): Allergies Allergy/AdvReac Type Severity Reaction Status Date / Time ketorolac tromethamine Allergy Intermediate SWELLING Verified 04/15/18 00:26 [From Toradol] tramadol Allergy Intermediate SWELLING Verified 04/15/18 00:26 No Known Home Med 04/15/18 Review of Systems - Psychiatric Psychiatric: Abnormal Sleep Pattern, Anhedonia, Anxiety, Change in Appetite, Depression, Difficulty Concentrating. absent: Hallucinations, Homicidal Ideation, Suicidal Ideation Mental Status Examination - Personal Presentation Personal Presentation: Looks stated age - Affect Affect: Constricted - Motor Activity Motor Activity: Calm - Reliability in Providing Information Reliability in Providing Information: Good - Speech Speech: Organized - Mood Mood: Depressed, Anxious - Formal Thought Process Formal Thought Process: No Impairment - Cognitive Functions Orientation: Person, Place, Situation, Time Sensorium: Alert Attention/Concentration: Easily distracted Estimate of Intelligence: Average Judgement: Intact, as evidence by: Insight regarding need for hospitalization Memory: Recent intact, as evidence by: Ability to recall events of the day, Remote intact, as evidenced by: Abilit to recall sig. life events - Risk Risk: Withdrawal, Diminished functioning - Strength & Assets Inventory Strength & Assets Inventory: Cooperative - Limitations Limitations: Other DSM 5 DX - DSM 5 DSM 5 Diagnosis: Opioid withdrawal Opioid use d/o- severe Depressive d/o - unspecified MERRITT Cannabis use d/o - severe Tobacco use d/o - severe - Recommended/Plan of Treatment Treatment Recommendations and Plan of Treatment: Taper with methadone Remeron for depression Gabapentin for augmentation As needed medications All risks, benefits and alternatives of the meds discussed, and the pt agreed and understood. Attend groups and activities Supportive therapy and psychoeducation [place] for abstinence CBT for relapse prevention Encourage MAT Refer to rehab or IOP, and self-help groups Smoking cessation with [place] Nicotine patch if needed 34 min Projected ELOS: 4-5 days Prognosis: good w treatment - Smoking Cessation Smoking Cessation Initiated: Yes
[2018-04-15] MEDS: Pantoprazole 20 mg EC Tab PO SCH (10:32)
[2018-04-16] MEDS: Pantoprazole 20 mg EC Tab PO SCH (09:34)
--- NOTE | 2018-04-16 14:12 | PCM.PYCHPN ---
Psychiatric Progress Note - Psychiatric Progress Note Patient seen today, length of contact: 15 minutes Patient Chief Complaint: I'm not feeling much better. I still feeling some withdrawal symptoms. Problems Identified/Issues Discussed: Patient seen, chart reviewed, case discussed with the staff. Issues related to illness and treatment were discussed with the patient and staff. Reported compliant with treatment with no adverse affects. Tolerating treatment very well. Patient reported feeling not better, still has withdrawal symptoms. Patient was calm and cooperative. Patient was awake alert oriented 3 with good eye contact. Mood reported as good, affect appropriate. Aftercare discussed with the patient. At the time of evaluation, patient was awake alert oriented 3, had no delusions , no auditory or visual hallucinations. Medical Problems: Anemia Chron's disease Colon Cancer Diagnostic Results: Review Medication Change: No Medical Record Reviewed: Yes Mental Status Examination - Cognitive Function Orientation: Person, Place, Situation, Time Memory: Intact Attention: WNL Concentration: WNL Association: WN Fund of Knowledge: [facility] Decription of patient's judgement and insights: Fair - Mood Mood: Anxious - Affect Affect: Other (Appropriate) - Speech Speech: Appropriate - Formal Thought Process Formal Thought Process: No Impairment Psychotic Thoughts and Behaviors: None - Suicidal Ideation Suicidal Ideation: No - Homicidal Ideation Homicidal Ideation: No Goal/Treatment Plan - Goal/Treatment Plan Need for Continued Stay: Remain at risks for inpatient hospitalization, Discharge may exacerbated symptoms, Severe functional impairment Progress Toward Problem(s) and Goals/Treatment Plan: Patient education. Supportive therapy. CBT for relapse prevention. [place] for abstinence. Continue treatment as before. Estimated Date of D/C: 04/19/18 - Smoking Cessation Smoking Cessation Initiated: Yes
[2018-04-17] MEDS: Pantoprazole 20 mg EC Tab PO SCH (09:43)
--- NOTE | 2018-04-17 11:40 | PCM.PYCHPN ---
Psychiatric Progress Note - Psychiatric Progress Note Patient seen today, length of contact: 15 minutes Patient Chief Complaint: "I'm getting better" Problems Identified/Issues Discussed: The pt is seen, chart reviewed, case discussed with staff. The pt is compliant with medications and reports no side-effects. Symptoms are improving but needs more time to stabilize. After care discussed, support and psychoeducation given. Medication Change: Yes (detox changes daily) Medical Record Reviewed: Yes Mental Status Examination - Cognitive Function Orientation: Person, Place, Situation, Time Memory: Intact Attention: WNL Concentration: WNL Association: WNL Fund of Knowledge: WNL - Mood Mood: Anxious - Affect Affect: Other (Appropriate) - Speech Speech: Appropriate - Formal Thought Process Formal Thought Process: No Impairment - Suicidal Ideation Suicidal Ideation: No - Homicidal Ideation Homicidal Ideation: No Goal/Treatment Plan - Goal/Treatment Plan Need for Continued Stay: Remain at risks for inpatient hospitalization, Discharge may exacerbated symptoms, Severe functional impairment Progress Toward Problem(s) and Goals/Treatment Plan: Taper with methadone Remeron for depression Gabapentin for augmentation As needed medications All risks, benefits and alternatives of the meds discussed, and the pt agreed and understood. Attend groups and activities Supportive therapy and psychoeducation [place] for abstinence CBT for relapse prevention Encourage MAT Refer to rehab or IOP, and self-help groups Smoking cessation with [place] Nicotine patch if needed Estimated Date of D/C: 04/19/18
[2018-04-18] MEDS: Pantoprazole 20 mg EC Tab PO SCH (09:23)
[2018-04-18 13:34] VITALS: RESP 18
--- NOTE | 2018-04-18 23:19 | PCM.PYCHPN ---
Psychiatric Progress Note - Psychiatric Progress Note Patient seen today, length of contact: 15 minutes Patient Chief Complaint: "I'm OK" Problems Identified/Issues Discussed: The pt is seen, chart reviewed, case discussed with staff. The pt is compliant with medications and reports no side-effects. Symptoms are improving but needs more time to stabilize. After care discussed, support and psychoeducation given. Medication Change: Yes (detox changes daily) Medical Record Reviewed: Yes Mental Status Examination - Cognitive Function Orientation: Person, Place, Situation, Time Memory: Intact Attention: WNL Concentration: WNL Association: WNL Fund of Knowledge: WNL - Mood Mood: Anxious - Affect Affect: Other (Appropriate) - Speech Speech: Appropriate - Formal Thought Process Formal Thought Process: No Impairment - Suicidal Ideation Suicidal Ideation: No - Homicidal Ideation Homicidal Ideation: No Goal/Treatment Plan - Goal/Treatment Plan Need for Continued Stay: Remain at risks for inpatient hospitalization, Discharge may exacerbated symptoms, Severe functional impairment Progress Toward Problem(s) and Goals/Treatment Plan: Taper with methadone Remeron for depression Gabapentin for augmentation As needed medications All risks, benefits and alternatives of the meds discussed, and the pt agreed and understood. Attend groups and activities Supportive therapy and psychoeducation [place] for abstinence CBT for relapse prevention Encourage MAT Refer to rehab or IOP, and self-help groups Smoking cessation with [place] Nicotine patch if needed Estimated Date of D/C: 04/19/18
--- NOTE | 2018-04-19 08:50 | PCM.PYCHDC ---
Mental Status Examination - Mental Status Examination Orientation: Person Discharge Summary - Discharge Note Consultations:: List each consultation separately and include: 1. Reason for request. 2. Findings. 3. Follow-up Summary of Hospital Course include:: 1. Description of specific treatment plan utilized for patients during their course of treatmen. 2. Summarize the time- course for resolution of acute symptoms and/or regressed behaviors. 3. Describe issues identified and worked on during hospitalization. 4. Describe medication utilized. 5. Describe medical problems identified and treated. 6. Reassessment of suicide risk Summary of Hospital Course: The pt is a 37 year old single male, who has 1 child, and lives in an apartment with his family. He is currently unemployed. Pt presenting for opioid detoxification. The last time he used it was yesterday. He uses about 10-20 bags/day intranasally. This is his 3rd time presenting for detoxification. His last detoxification was 3 months ago. He maintained sobriety for 20 days. He relapsed because of depression and cravings. Longest sobriety period was for 4 months after his detoxification in March 2017. Pt smokes cigarettes half a pack/day, occasionally uses marijuana, sometimes cocaine but denies using any other drugs. His urine is positive for amph. but he denies using them and it's likely mixed in his heroin. Psych Hx: Feels very depressed and anxious. He denies SI, auditory or visual hallucinations. Pt states that he has "flashbacks" frequently but denies any traumatic history. Family Psych Hx: Unremarkable Legal Hx: Incarcerated on January 2017 for possession of heroin. Medical Hx: Chronic back pain secondary to herniated disk, which was diagnosed in 2007. He was prescribed roxys (30 mg), for which he took until September 2016 , when he was switched to Norcos, but was noncompliant and used heroin instead. Pt also had anemia, which he underwent blood transfusion, colon cancer ( diagnosed on May 2017 and treated), and Crohn's disease. He will attend [facility]. - Diagnosis (1) Opiate dependence, continuous Current Visit: No Status: Acute - Final Diagnosis (DSM 5) Condition upon Discharge: STABLE Disposition: HOME/ ROUTINE Follow-up Treatment Plan: Taper with methadone Remeron for depression Gabapentin for augmentation As needed medications All risks, benefits and alternatives of the meds discussed, and the pt agreed and understood. Attend groups and activities Supportive therapy and psychoeducation [place] for abstinence CBT for relapse prevention Encourage MAT Refer to rehab or IOP, and self-help groups Smoking cessation with [place] Nicotine patch if needed Prescriptions/Medication Reconciliation: cloNIDine [Catapres] 0.1 mg PO DAILY PRN #14 tab PRN Reason: Withdrawal Symptoms Gabapentin [Neurontin] 300 mg PO BID #60 cap Mirtazapine [Remeron] 30 mg PO HS #30 tab Pantoprazole [Protonix EC Tab] 20 mg PO DAILY #30 ect Propranolol [Inderal] 20 mg PO TID #90 tab
[2018-04-19] MEDS: Pantoprazole 20 mg EC Tab PO SCH (09:16)
[2018-04-19 10:03] VITALS: BP 154/89; PULSE 64; TEMP 97.6; O2SAT 100
== END 2018-04-19 10:30 | disposition home or self-care (01) | DRG 745 ==
LOC: C.ER 00:04 → C.7D 01:46
PROVIDERS: ADMIT Psychiatry & Neurology Psychiatry; ATTEND Psychiatry & Neurology Psychiatry
PROC: GZHZZZZ Group Psychotherapy (ICD-10-PCS; principal; 2018-04-15)
DX: F11.23 Opioid dependence with withdrawal (principal); F12.90 Cannabis use, unspecified, uncomplicated; F17.210 Nicotine dependence, cigarettes, uncomplicated; D64.9 Anemia, unspecified; F32.9 Major depressive disorder, single episode, unspecified; K50.90 Crohn's disease, unspecified, without complications

== ENCOUNTER 2018-12-30 09:44 | Emergency (ER) | payer MEDICAID ==
[2018-12-30 09:44] VITALS: BMI 28.2
[2018-12-30 09:51] VITALS: RESP 18
--- NOTE | 2018-12-30 10:09 | C.PDOC ---
Chief Complaint (Nursing): Anxiety Past Medical History Vital Signs: Last Vital Signs Temp 98.7 F 12/30/18 09:48 Pulse 79 12/30/18 09:48 Resp 18 12/30/18 09:48 BP 150/97 H 12/30/18 09:48 Pulse Ox 100 12/30/18 09:48 Primary Care Provider: Non [facility] Provider, - Medical History PMH: Anemia (transfusion x2), Anxiety, Asthma, Back Problems, Colonic Polyps, Crohn's Disease, Depression, Gastritis, Malignancy, 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) Denies: Diabetes, Hepatitis, HIV, HTN, Chronic Kidney Disease, Sexually Transmitted Disease - [facility] Procedures DETOXIFICATION SERVICES FOR SUBSTANCE ABUSE TREATMENT (12/12/17) GROUP PSYCHOTHERAPY (04/15/18) Family History: States: Unknown Family Hx - Social History Hx Tobacco Use: No Hx Alcohol Use: No Hx Substance Use: Yes (methadone) - Immunization History Hx Tetanus Toxoid Vaccination: No Hx Influenza Vaccination: Yes Hx Pneumococcal Vaccination: No ED Course And Treatment O2 Sat by Pulse Oximetry: 100 Disposition - Disposition
--- NOTE | 2018-12-30 10:35 | C.PDOC ---
History Of Present Illness 38 y/o male, with history of anxiety, depression, and colon cancer, presents to ED stating he feels anxious and agitated, and has racing thoughts. States hes been having panic attacks for the past 2-3 months. He reports taking buspar for 3 weeks and hasn't noticed much improvement. Patient was previously on Xanax and states that it works best for him in the past. Denies SI/HI. Time Seen by Provider: 12/30/18 10:04 Chief Complaint (Nursing): Anxiety History Per: Patient History/Exam Limitations: no limitations Onset/Duration Of Symptoms: Days Current Symptoms Are (Timing): Still Present Past Medical History Reviewed: Historical Data, Nursing Documentation, Vital Signs Vital Signs: Last Vital Signs Temp 98.7 F 12/30/18 09:48 Pulse 79 12/30/18 09:48 Resp 18 12/30/18 09:48 BP 150/97 H 12/30/18 09:48 Pulse Ox 100 12/30/18 10:09 Primary Care Provider: Non [facility] Provider, - Medical History PMH: Anemia (transfusion x2), Anxiety, Asthma, Back Problems, Colonic Polyps, Crohn's Disease, Depression, Gastritis, Malignancy, 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) Denies: Diabetes, Hepatitis, HIV, HTN, Chronic Kidney Disease, Sexually Transmitted Disease - [facility] Procedures DETOXIFICATION SERVICES FOR SUBSTANCE ABUSE TREATMENT (12/12/17) GROUP PSYCHOTHERAPY (04/15/18) Family History: States: No Known Family Hx - Social History Hx Tobacco Use: No Hx Alcohol Use: No Hx Substance Use: Yes (methadone) - Immunization History Hx Tetanus Toxoid Vaccination: No Hx Influenza Vaccination: Yes Hx Pneumococcal Vaccination: No Review Of Systems Constitutional: Negative for: Fever, Chills Cardiovascular: Negative for: Chest Pain Respiratory: Negative for: Shortness of Breath Skin: Negative for: Bruising Neurological: Negative for: Weakness, Headache, Dizziness Psych: Positive for: Anxiety, Depression. Negative for: Suicidal ideation (or homicidal ideation), Withdrawal Physical Exam - Physical Exam Appears: Non-toxic, No Acute Distress Skin: Warm, Dry Head: Atraumatic, Normacephalic Eye(s): bilateral: Normal Inspection, PERRL Ear(s): Bilateral: Normal Nose: No Discharge Oral Mucosa: Moist Tongue: Normal Appearing Lips: Normal Appearing Throat: Normal, No Erythema, No Exudate Neck: Normal ROM, Supple Cardiovascular: Rhythm Regular Respiratory: Normal Breath Sounds, No Rales, No Rhonchi, No Wheezing Gastrointestinal/Abdominal: Soft, No Tenderness Extremity: Bilateral: Atraumatic, Normal Color And Temperature, Normal ROM Neurological/Psych: Oriented x3, Normal Speech, Normal Sensation Gait: Steady ED Course And Treatment O2 Sat by Pulse Oximetry: 100 (RA) Pulse Ox Interpretation: Normal Medical Decision Making Medical Decision Making: Plan: --Xanax 0.5 mg PO --patient reassessed and resting comfortable- vitals are stable --Patient advised to follow up at [facility] for medication management since he is unable ot make a sooner appt at [facility] --Patient is stable for discharge Disposition Counseled Patient/Family Regarding: Diagnosis, Need For Followup - Disposition Referrals: [facility] [place] [Outside] Disposition: HOME/ ROUTINE Disposition Time: 10:50 Condition: IMPROVED Additional Instructions: You were given Xanax today and will need to follow up with [facility] or [facility] for med management Follow up with Methadone clinic to obtain does for today Return to the ED if symptoms worsen Instructions: Anxiety, Adult (DC) Forms: [employer] (Guamanian) - Clinical Impression Clinical Impression: Mixed anxiety depressive disorder - PA / VICE PRESIDENT OF TALENT MANAGEMENT / Resident Statement MD/DO has reviewed & agrees with the documentation as recorded. - Scribe Statement The provider has reviewed the documentation as recorded by the Racheliblarissa Zamora All medical record entries made by the Racheliblarissa were at my direction and personally dictated by me. I have reviewed the chart and agree that the record accurately reflects my personal performance of the history, physical exam, medical decision making, and the department course for this patient. I have also personally directed, reviewed, and agree with the discharge instructions and disposition.
--- NOTE | 2018-12-30 10:50 | C.PDOC ---
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) Denies: Diabetes, Hepatitis, HIV, HTN, Chronic Kidney Disease, Sexually Transmitted Disease - [facility] Procedures DETOXIFICATION SERVICES FOR SUBSTANCE ABUSE TREATMENT (12/12/17) GROUP PSYCHOTHERAPY (04/15/18) Family History: States: No Known Family Hx, Unknown Family Hx - Social History Hx Tobacco Use: No Hx Alcohol Use: No Hx Substance Use: Yes (methadone) - Immunization History Hx Tetanus Toxoid Vaccination: No Hx Influenza Vaccination: Yes Hx Pneumococcal Vaccination: No ED Course And Treatment O2 Sat by Pulse Oximetry: 100 (RA) Disposition Counseled Patient/Family Regarding: Diagnosis, Need For Followup, Rx Given - Disposition Referrals: [facility] [Outside] Disposition: HOME/ ROUTINE Disposition Time: 10:40 Condition: IMPROVED Additional Instructions: You were given Xanax today and will need to follow up with [facility] for med management Follow up with Methadone clinic to obtain does for today Return to the ED if symptoms worsen Instructions: Anxiety, Adult (DC) Forms: [employer] [facility] (Chinese) - Clinical Impression Clinical Impression: Mixed anxiety depressive disorder
[2018-12-30 10:59] VITALS: BP 145/89; PULSE 69; TEMP 98.6
[2018-12-30 20:51] VITALS: O2SAT 100
== END 2018-12-30 10:50 | disposition home or self-care (01) ==
LOC: C.ER 09:44
DX: F41.8 Other specified anxiety disorders (principal)